=== PATIENT | female | born 1975 | race Caucasian/White ===

== ENCOUNTER → 2016-06-30 | Outpatient (CLI) | payer OTHER ==
[~2016-06-30] MED LIST: Gadobutrol 10 mMOL/10 ML SDV IVPUSH STA; Gadobutrol 7.5 mMOL/7.5 ML SDV IVPUSH STA
--- NOTE | 2016-07-01 09:05 | MR ---
EXAMINATION: MRI of the brain with and without contrast, MRA neck with and without contrast, MRA hea d without contrast. HISTORY: Dizziness COMPARISON: CT dated 10/29/2010 TECHNIQUE: Multiplanar and multisequence images obtained through the brain and neck before and follo wing the administration of 15 mL of Gadavist. Olve-nh-zlywek images were obtained through the head a nd neck. Thick slab MIP images obtained. FINDINGS: MRI brain: Cerebral hemispheres and the deep nuclei are without hemorrhage, mass, edema, gliosis, en hancement or atrophy. No abnormal diffusion restriction. No extraaxial collections or hemorrhage. T he ventricular system is of normal size and configuration without hydrocephalus. Brainstem and cere bellum are without hemorrhage, mass, edema, gliosis, enhancement or atrophy. The carotid basilar ar desirae flow voids are intact. The otomastoid airspaces are clear. No internal auditory canal or cerebellopontine angle masses or enhancement. The paranasal sinuses are clear. The globes, optic nerves, orbital apices, optic leandro sm, optic tracts, and visual cortices are unremarkable. The pituitary and sella turcica are unremar kable. No meningeal enhancement. The craniocervical junction is unremarkable without Chiari malfor mation. No siderosis or evidence of vascular malformation. The calvarium is intact. MRA head: The distal internal carotid arteries appear normal. The vertebral basilar arteries are nor mal. The middle, posterior, and anterior cerebral arteries are normal. The posterior communicating a rteries are diminutive. Anterior communicating artery is normal. No significant aneurysm or stenosis . MRA neck: There is a three-vessel origin on the aortic arch. The common carotid, internal carotid, a nd external carotid arteries appear grossly patent. The vertebral arteries appear codominant an othe rwise normal. IMPRESSION: 1. No acute intracranial findings. 2. Normal intracranial arterial circulation. 3. Normal extracranial arterial circulation.
== END ==
LOC: MW.MRI 14:44
PROVIDERS: ATTEND Psychiatry & Neurology Neuromuscular Medicine
DX: R42 Dizziness and giddiness (principal)
CPT/HCPCS: 70544; 70549; 70553; A9585